=== PATIENT | male | born 1990 | race Caucasian/White ===

== ENCOUNTER 2017-03-15 20:33 | Emergency (ER) | payer MEDICAID ==
[2017-03-15 22:22] LABS: APPEARANCE CLEAR (CLEAR); BILIRUBIN NEGATIVE (NEGATIVE); COLOR YELLOW (YELLOW); GLUCOSE NEGATIVE (NEGATIVE); KETONE NEGATIVE (NEGATIVE); NITRITE NEGATIVE (NEGATIVE); PROTEIN NEGATIVE (NEGATIVE); UROBILINOGEN NORMAL (NORMAL)
[2017-03-15 22:30] LABS: UDS - AMPHET NEGATIVE QUAL (NEGATIVE); UDS - BARB NEGATIVE QUAL (NEGATIVE); UDS - BENZO NEGATIVE QUAL (NEGATIVE); UDS - COCAINE NEGATIVE QUAL (NEGATIVE); UDS - OPIATE NEGATIVE QUAL (NEGATIVE); UDS - PCP NEGATIVE QUAL (NEGATIVE); UDS - THC NEGATIVE QUAL (NEGATIVE)
== END 2017-03-15 23:49 | disposition home or self-care (01) ==
LOC: D.ER 20:33
PROVIDERS: Emergency Medicine Emergency Medical Services
DX: R51 Headache (principal); M79.645 Pain in left finger(s); F90.9 Attention-deficit hyperactivity disorder, unspecified type; F17.200 Nicotine dependence, unspecified, uncomplicated

== ENCOUNTER 2017-04-08 23:28 | Emergency (ER) | payer MEDICAID | END 2017-04-09 00:25 | disposition home or self-care (01) | LOC: D.ER 23:28 | DX: J20.9 Acute bronchitis, unspecified (principal); F90.9 Attention-deficit hyperactivity disorder, unspecified type; F17.200 Nicotine dependence, unspecified, uncomplicated ==

== ENCOUNTER 2017-04-10 11:33 | Emergency (ER) | payer MEDICAID ==
[2017-04-10 13:51] LABS: BASOPHILS 0 % (0-2); EOSINOPHILS 0.6 % (0-7); HEMATOCRIT 43.3 % (42.0-54.0); HEMOGLOBIN 14.5 g/dL (13.5-17.5); IMMATURE GRANULOCYTES 0.7 % (0-5); LYMPHOCYTES 13.6 % (15-50); MCH 27.7 pg (26.0-34.0); MCHC 33.5 g/dL (31.0-37.0); MCV 82.6 fL (80.0-100.0); MEAN PLATELET VOLUME 11.2 fL (7.4-10.4); MONOCYTES 12.3 % (2-11); NEUTROPHILS 72.8 % (40-80); RBC 5.24 10x6/uL (4.20-6.10); RDW 13.9 % (11.5-14.5); WBC 5.4 10x3/uL (4.8-10.8)
[2017-04-10 14:09] LABS: ALBUMIN 3.7 g/dL (3.4-5.0); ALKALINE PHOSPHATASE 46 U/L (46-116); ALT (SGPT) 17 U/L (10-68); CALC OSMOLALITY 284 mosm/kg (275-300); CALCIUM 8.4 mg/dL (8.5-10.1); CARBON DIOXIDE 30.2 mmol/L (21.0-32.0); CHLORIDE - SERUM 105 mmol/L (98-107); GLUCOSE 99 mg/dL (74-106); PROTEIN - SERUM 6.2 g/dL (6.4-8.2); SODIUM 142 mmol/L (136-145); UREA NITROGEN 18 mg/dL (7-18); eGFR NON AFRICAN AMERICAN > 90 mL/min (90-120)
[2017-04-10 14:19] LABS: PLATELET COUNT 86 10x3/uL (130-400)
== END 2017-04-10 15:10 | disposition home or self-care (01) ==
LOC: D.ER 11:33
PROVIDERS: Family Medicine
DX: J11.1 Influenza due to unidentified influenza virus with other respiratory manifestations (principal); F17.200 Nicotine dependence, unspecified, uncomplicated

== ENCOUNTER 2017-04-15 16:09 | Emergency (ER) | payer MEDICAID | END 2017-04-15 18:00 | disposition home or self-care (01) | LOC: D.ER 16:09 | DX: L01.00 Impetigo, unspecified (principal); F90.9 Attention-deficit hyperactivity disorder, unspecified type ==

== ENCOUNTER 2017-05-18 16:29 | Emergency (ER) | payer MEDICAID ==
[2017-05-18 18:11] LABS: APPEARANCE CLEAR (CLEAR); BILIRUBIN NEGATIVE (NEGATIVE); COLOR STRAW (YELLOW); GLUCOSE NEGATIVE (NEGATIVE); KETONE NEGATIVE (NEGATIVE); NITRITE NEGATIVE (NEGATIVE); PROTEIN NEGATIVE (NEGATIVE); SPECIFIC GRAVITY 1.015 (1.005-1.020); UROBILINOGEN NORMAL (NORMAL)
== END 2017-05-18 19:15 | disposition home or self-care (01) ==
LOC: D.ER 16:29
PROVIDERS: Nurse Practitioner Family
DX: K40.90 Unilateral inguinal hernia, without obstruction or gangrene, not specified as recurrent (principal); F90.9 Attention-deficit hyperactivity disorder, unspecified type

== ENCOUNTER → 2020-02-04 11:11 | Outpatient (CLI) | payer MEDICAID | END | disposition home or self-care (01) | LOC: D.MRI 11:11 | PROVIDERS: ATTEND Orthopaedic Surgery | DX: S83.232A Complex tear of medial meniscus, current injury, left knee, initial encounter (principal) ==

== ENCOUNTER 2020-03-02 08:32 | Day surgery (SDC) | payer MEDICAID ==
[~2020-03-02] VITALS: Ht 175.3 cm; Wt 83.9 kg
[~2020-03-02 08:32] MED LIST: DILANTIN100 MG PO
[2020-03-02 09:20] VITALS: BP 117/74; Ht 175.3 cm; Wt 83.9 kg
--- NOTE | 2020-03-02 10:08 | NUR ---
DR. RUSS NOTIFIED AND REVIEWED PT'S BEHAVIOR AND ASSESSMENT RESULTS. PT IS A LOW RISK PER DR. RUSS. DR. ROMERO STATED TO GIVE RESOURCES TO PT AT TIME OF DISCHARGE. NO FURTHER ORDERS NOTED. RESOURCES REVIEWED WITH PT AND HE VERBALIZED UNDERSTANDING.
[2020-03-02] MEDS ORDERED: DILAUDID2 MG PO (12:40)
--- NOTE | 2020-03-02 13:08 | NUR ---
PATIENT AWAKE. STATING HE HAS PAIN 9/10. DOSES OFF AFTER ANSWERING QUESTIONS.
--- NOTE | 2020-03-02 15:15 | NUR ---
1420 IV D/C'D WITH CANNULA INTACT, PRESSURE APPLIED AND DRSG PLACED. DISCHARGE INSTUCTONS GIVEN TO PT AND . DISCHAREDIN STABLE CONITION WITH [facility] TO OPERATIVE
--- NOTE | 2020-03-19 11:33 | OP ---
PATIENT NAME: HARMAN LOPEZ MEDICAL RECORD: [id number] :89 LOCATION:[facility] ADMISSION DATE: SURGEON: ROBER SABA MD DATE OF OPERATION: 03/02/2020 PREOPERATIVE DIAGNOSIS: Left lateral meniscal tear, knee. POSTOPERATIVE DIAGNOSIS: Left lateral meniscal tear, knee. PROCEDURE: Left lateral meniscal repair. SURGEON: Rober Saba MD ANESTHESIA: General. INTRAOPERATIVE COMPLICATIONS: None. SUMMARY OF PATHOLOGIC FINDINGS: The patient had a very deep tear of the lateral meniscus from the capsule itself, it emanated from the popliteal hiatus laterally and was subluxing into the knee joint itself. This is consistent with the patient's MRI. The meniscus was Fix all-inside meniscal repair system from [employer]. OPERATIVE SUMMARY DETAIL: After obtaining appropriate preoperative orthopedic surgery consent as well as anesthetic consultation, evaluation and clearance, the patient was brought to the operating room and placed on the operating table in a supine position. After general laryngeal mask anesthesia, tourniquet was placed on the proximal aspect of the patient's left lower extremity. Left lower extremity was then prepped and draped in routine sterile fashion. The leg was exsanguinated and tourniquet inflated to 350 mmHg. At this point, the timeout was taken and agreed upon by all given the patient's unique identifiers. Routine inferolateral portal was established via superomedial portal, inferomedial portal. Diagnostic arthroscopy revealed a relatively pristine knee with the exception of the lateral meniscus tear as described above. Two all-inside meniscal sutures were utilized to place 2 vertical sutures closing the meniscal capsular separation back down to the normal popliteal hiatal structure. Having completed this, the meniscus was probed and found to be nonsubluxable. Having completed this, the knee was filled with 0.25% Marcaine plain. The arthroscopy portals were removed, closed in routine interrupted fashion using 4-0 Prolene. Sterile dressings were applied. Tourniquet was deflated. The patient was awakened and taken to recovery room in stable condition. All final needle and sponge counts were correct. 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
== END 2020-03-02 14:27 | disposition home or self-care (01) ==
LOC: D.OPS 08:32
PROVIDERS: ATTEND Orthopaedic Surgery
DX: S83.282A Other tear of lateral meniscus, current injury, left knee, initial encounter (principal); X58.XXXA Exposure to other specified factors, initial encounter; M25.562 Pain in left knee